=== PATIENT | male | born 1990 | race African-American/Black ===

== ENCOUNTER 2016-08-15 02:01 | Emergency (ER) | payer SELFPAY ==
[~2016-08-15] VITALS: Ht 167.6 cm; Wt 60.0 kg
--- NOTE | 2016-08-15 02:11 | ERA ---
ER Documentation Chief Complaint Date/Time DATE: 08/15/16 TIME: 02:11 Chief Complaint itchy HPI The patient is a 26-year-old homeless male, presenting to the ER because generalized body itch for the last couple days. He denies fever, chills, neck pain, chest pain, abdominal pain, vomiting, dysuria, diarrhea. He smokes and drinks, denies illicit drug Past medical/surgical history: None ROS All systems reviewed and are negative except as per history of present illness. Medications Home Meds Active Scripts Diphenhydramine Hcl* (Benadryl*) 50 Mg Cap, 50 MG PO Q6H Y for ITCHING/RASH, # 20 CAP Prov:SINA SALCIDO MD 08/15/16 Allergies Allergies: Coded Allergies: No Known Allergy (Unverified , 04/24/16) Physical Exam Vitals Vital Signs Date Time Temp Pulse Resp B/P Pulse Ox O2 Delivery O2 Flow Rate FiO2 08/15/16 02:30 98.2 88 20 132/80 99 Physical Exam Const: No acute distress. Head: Atraumatic. Eyes: Normal Conjunctiva. ENT: Normal External Ears, Nose and Mouth. Neck: Full range of motion. No meningismus. Resp: Clear to auscultation bilaterally. Cardio: Regular rate and rhythm, no murmurs. Abd: Soft, non distended, normal bowel sounds, non tender. Skin: Generally excoriation, no petechia, no vesicles Back: No midline or flank tenderness. Ext: No cyanosis, or edema. Neur: Awake and alert. No focal deficit Psych: Normal Mood and Affect. Results 24 hrs Current Medications Medications (Trade) Dose Ordered Sig/Ricardo Route PRN Reason Start Time Stop Time Status Last Admin Dose Admin Ivermectin (Stromectol) 12 mg ONCE ONCE PO 08/15/16 03:00 08/15/16 03:01 08/15/16 02:55 Diphenhydramine HCl (Benadryl) 50 mg ONCE ONCE PO 08/15/16 03:00 08/15/16 03:01 08/15/16 02:56 Ibuprofen (Motrin) 600 mg ONCE ONCE PO 08/15/16 03:00 08/15/16 03:01 08/15/16 02:55 Procedures/MDM MEDICAL MAKING DECISION: The patient is a 26-year-old male, presenting with scabies. He was treated with ivermectin p.o., Benadryl 50 mg p.o. for pruritus and Motrin for headache with good response. The differential diagnoses considered include but are not limited to cellulitis, contact dermatitis, allergic reaction Departure Diagnosis: Primary Impression: Scabies Condition: Good Comments I discussed the findings with the patient. I advised the patient to follow-up at [facility] in about 1-2 days, sooner if needed and return if any concern. The patient's blood pressure was elevated (>120/80) but appears stable without evidence of hypertension emergency or urgency. The patient was counseled about the risks of hypertension and urged to pursue outpatient monitoring and therapy within a week with their primary care physician. SINA SALCIDO MD Aug 15, 2016 02:11
[2016-08-15 02:30] VITALS: Ht 167.6 cm; Wt 60.0 kg
[2016-08-15] MEDS ORDERED: BEN50 PO (02:44)
[2016-08-15] MEDS ORDERED: IBUPROFEN 600 MG TAB PO ONE (03:00)
[2016-08-15] MEDS ORDERED: DIPHENHYDRAMINE 50 MG CAP PO ONE (03:00)
[2016-08-15] MEDS ORDERED: IVERMECTIN 3 MG TAB PO ONE (03:00)
== END 2016-08-15 02:55 | disposition home or self-care (01) ==
LOC: E/R 02:01
DX: B86 Scabies (principal)
CPT/HCPCS: 99283

== ENCOUNTER 2017-03-06 03:05 | Emergency (ER) | payer MEDICAID, OTHER ==
[~2017-03-06] VITALS: Ht 172.7 cm; Wt 72.0 kg
[~2017-03-06 03:05] MED LIST: BEN50 PO
[2017-03-06 03:13] VITALS: Ht 172.7 cm; Wt 72.0 kg
--- NOTE | 2017-03-06 03:26 | ERA ---
ER Documentation Chief Complaint Date/Time DATE: 03/06/17 TIME: 03:26 Chief Complaint Insomnia HPI The patient is a 26-year-old male, presenting to the ER because he has not been able to see for the last couple of days. However he is now sleepy and wants a place to sleep. He denies auditory/visual hallucination, homicidal/suicidal ideation ROS All systems reviewed and are negative except as per history of present illness. Medications Home Meds Active Scripts Diphenhydramine Hcl* (Benadryl*) 50 Mg Cap, 50 MG PO Q6H Y for ITCHING/RASH, # 20 CAP Prov:SINA SALCIDO MD 08/15/16 Allergies Allergies: Coded Allergies: No Known Allergy (Unverified , 04/24/16) PMhx/Soc History of Surgery: No Anesthesia Reaction: No Hx Neurological Disorder: No Hx Respiratory Disorders: No Hx Cardiac Disorders: No Hx Psychiatric Problems: No Hx Miscellaneous Medical Probl: No Hx Alcohol Use: Yes Hx Tobacco Use: Yes Physical Exam Vitals Vital Signs Date Time Temp Pulse Resp B/P Pulse Ox O2 Delivery O2 Flow Rate FiO2 03/06/17 03:13 96.6 60 17 104/80 100 Physical Exam Const: No acute distress. Head: Atraumatic. Eyes: Normal Conjunctiva. ENT: Normal External Ears, Nose and Mouth. Neck: Full range of motion. No meningismus. Resp: Clear to auscultation bilaterally. Cardio: Regular rate and rhythm. Abd: Soft, non distended, normal bowel sounds, non tender. Skin: No petechiae or rashes. Back: No midline or flank tenderness. Ext: No cyanosis, or edema. Neur: Awake and alert. No focal deficit Psych: Normal Mood and Affect. Procedures/MDM MEDICAL MAKING DECISION: The patient is a 26-year-old female, presenting with insomnia. He is sleeping well in the emergency department and is stable for outpatient follow-up Departure Diagnosis: Primary Impression: Insomnia Condition: Good Comments I discussed the findings with the patient. I advised the patient to follow-up with the primary physician in about 1-2 days, sooner if needed and return if any concern. SINA SALCIDO MD Mar 06, 2017 03:26
== END 2017-03-06 05:15 | disposition home or self-care (01) ==
LOC: E/R 03:05
DX: G47.00 Insomnia, unspecified (principal); Z87.891 Personal history of nicotine dependence
CPT/HCPCS: 99283